=== PATIENT | female | born 1995 | race Caucasian/White ===

== ENCOUNTER 2020-04-15 05:29 | Inpatient (IN) | payer OTHER ==
[~2020-04-15 05:29] MED LIST: CEFAZOLIN 2 GM/D5W RTU 2 GM/50 ML RTUPB IV ONE; LACTATED RINGERS 1000 ML IV PRN; LIDOCAINE 0.5% INJ-PF (5 MG/ML) 50 ML SDV SUBCUT PRN
[2020-04-15] MEDS ORDERED: FENTANYL CITRATE INJ/PF 250 MCG/5 ML AMPULE ONE (06:57)
[2020-04-15] MEDS ORDERED: FENTANYL CITRATE INJ/PF 100 MCG/2 ML AMPUL ONE (06:57)
[2020-04-15] MEDS ORDERED: MIDAZOLAM 2 MG/2 ML INJ ONE (06:57)
[2020-04-15] MEDS ORDERED: MORPHINE SULFATE 10 MG/ML INJ ONE (06:58)
[2020-04-15] MEDS ORDERED: PROPOFOL INJ 200 MG/20 ML VIAL IV ONE (06:58)
[2020-04-15] MEDS ORDERED: SCOPOLAMINE HYDROBROMIDE 1.5 MG PATCH.TD72 ONE (07:01)
[2020-04-15] MEDS ORDERED: SUGAMMADEX SODIUM 200 MG/2 ML SDV IV ONE (09:44)
[2020-04-15] MEDS ORDERED: DEXAMETHASONE SOD PHOSPHATE INJ 4 MG/1 ML VIAL ONE (10:00)
[2020-04-15] MEDS ORDERED: ONDANSETRON HCL INJ/PF 4 MG/2 ML SDV ONE (10:00)
[2020-04-15] MEDS ORDERED: ROCURONIUM BROMIDE INJ 50 MG/5 ML VIAL IV ONE (10:00)
[2020-04-15] MEDS ORDERED: PROMETHAZINE HCL INJ 25 MG/1 ML VIAL IV PRN (10:35)
[2020-04-15] MEDS ORDERED: ONDANSETRON HCL INJ/PF 4 MG/2 ML SDV IV PRN (10:35)
[2020-04-15] MEDS ORDERED: RINGERS SOLUTION,LACTATED 1,000 ML IV PRN (10:35)
[2020-04-15] MEDS ORDERED: TRAMADOL HCL 50 MG TABLET PO PRN (10:42)
[2020-04-15] MEDS ORDERED: HYDROMORPHONE HCL INJ/PF 2 MG/ML AMPULE IV PRN (10:42)
[2020-04-15] MEDS ORDERED: ACETAMINOPHEN 1,000 MG/100 ML RTUPB IV ONE (11:00)
--- NOTE | 2020-04-15 11:18 | Operative Report ---
Operative Report DATE OF SURGERY: 04/15/20 PREOPERATIVE DIAGNOSIS: Nonfunctional kidney; Recurrent UTIs POSTOPERATIVE DIAGNOSIS: PAMELA OPERATION: Right robot assisted laparoscopic simple nephrectomy SURGEON: JUAN DUNN 1ST CREW BOAT OPERATOR: NATTY DEJESUS 2ND Engagement Quality Consultant: PRINCE LOCKE ANESTHESIA: GA TISSUE REMOVED OR ALTERED: right kidney COMPLICATIONS: none ESTIMATED BLOOD LOSS: 50 INTRAOPERATIVE FINDINGS: right renal atrophy with lower pole accessory artery and vein PROCEDURE: The patient was met in preop hold and written consent performed. She was marked on the right side. She was taken to the OR and placed supine where general anesthesia was administered. A abreu catheter was placed. She was repositioned in relax left lateral decubitus with right side up. A gel roll was placed behind her back and axillary roll placed. The table was flexed. Her arm was secured to a support at a 90 degree angle with shoulder neutral. Her left leg was flexed and the right leg supported with pillows partially flexed. She was secured with silk tape and towels. She was prepped and draped in the usual sterile fashion. A timeout was called ensuring correct patient, correct laterality and that all preoperative requirements had been met. Antibiotics were administered. With all in the room in agreement, we proceeded. The abdomen was insufflated with a Veress needle in the right lower quadrant. All ports sites were infiltrated with 0.25% marcaine. A 12mm robotic port was placed at the level of the umbilicus. The camera was passed through and we confirmed no injury on port or veress placement. The other trocars were placed under direct vision being a subcostal and right lower quadrant 8mm, 12mm Airseal assist between and medial to latter and camera, and a 5mm subxiphoid port. There was a minor liver laceration when placing the 8mm subcostal port with no significant bleeding that did not require any hemostasis. The robot was docked over the right shoulder. A atraumatic locking grasper was used to elevate the liver by grasping peritoneum over diaphragm. I began the dissection with using fenestrated bipolar and monopolar scissors by taking down omental adhesions to gallbladder. The colon was reflected medially. There was no need to kocherize the duodenum as fell well clear of vena cava which was apparent. The ureter was visible. This was isolated and elevated and posterior attachments freed. I followed ureter up to renal pelvis which was moderately dilated. After switching to maryland forceps, I carefully dissected towards hilum. There was a lower pole accessory artery that was isolated. There was a renal vein closely adherent to another small artery above this. These were isolated. There was then another artery and vein in close proximity above this. As a thin upper pole extended beyond this, it was unclear if these were upper pole accessories or were the main renal vein and artery as all vessels were relatively small in caliber. Gerota's was from the upper and lower poles in a capsular plane. There was very little fat on the anterior surface of the kidney. Once adequate windows were made, the lower pole artery and other two vascular bundles were ligated and divided with successive 45mm vascular loads of a Ethicon stapler. The ureter was ligated with Hem-o-enio clips and divided. The kidney was freed from its lateral Gerota's in a capsular plane. It was placed in a 10mm specimen bag with string brought through the election assistant Airseal port. The resection bed was thoroughly irrigated. The bed and liver were inspected with excellent hemostasis. The abdomen was desufflated and ports removed. The assist ant port wound was extended by 2cm down through fascia and muscle. The atrophied kidney was easily delivered through this wound and passed off for permanent analysis. The fascia of the specimen incision was closed with 0 Vicryl, and skin closed in layers. The port sites were closed with 4-0 monocryl and dressed with surgical glue. There were no complications. All counts were correct. The patient tolerated the procedure well. She was extubated and transferred to the PACU in stable condition.
[2020-04-15] MEDS ORDERED: DOCUSATE SODIUM 100 MG CAPSULE PO SCH (18:00)
--- NOTE | 2020-04-16 08:27 | PDOC PROGRESS REPORT ---
Subjective Progress Note for:: 04/16/20 Subjective:: Doing well. No PRN, walking, passing flatus, monique PO Reason For Visit: Z87.440 PERSONAL HISTORY OF URINARY (TRACT) INFECT Physical Exam Vital Signs: Temp Pulse Resp BP Pulse Ox 97.9 F 83 16 121/78 99 04/16/20 07:20 04/16/20 07:20 04/16/20 07:20 04/16/20 07:20 04/16/20 07:20 Intake & Output 04/15/20 04/16/20 04/17/20 06:59 06:59 06:59 Intake Total 0 2340 Output Total 1660 Balance 0 680 Weight 60 kg Additional comments: Alert, NAD. Breathing unlabored. Abd soft, wounds dressed with glue, approp ttp, abreu clear straw Assessment & Plan - Plan Summary Plan Summary: RECURRENT UTIs RIGHT NONFUNCTIONAL KIDNEY Draw labs, call with results Abreu out Discharge when results available I will arrange followup, discharge meds on base
--- NOTE | 2020-04-16 08:32 | Discharge Summary ---
Discharge Summary (SDC) - Discharge Final Diagnosis: RECURRENT UTIS NONFUNCTIONAL KIDNEY Date of Surgery: 04/15/20 Condition: Good Treatment or Instructions: MAY SHOWER ON DISCHARGE. NO HEAVY LIFTING OR STRENUOUS EXERCISE FOR 2 WEEKS. UROLOGY CLINIC WILL CALL TO ARRANGE POSTOP APPOINTMENT. NO DISCHARGE MEDS. PRESCRIBED ON BASE. Respiratory Treatments at Home: Incentive Spirometer Discharge Activity: Activity As Tolerated Home Care Assistance: None Needed Report the Following to Your Physician Immediately: Nausea, Vomiting, Fever over 101 Degrees, Redness, Urinary Infection Signs
[2020-04-16 08:55] LABS: HEMATOCRIT 39.9 % (36.0-47.0); HEMOGLOBIN 13.6 g/dL (12.0-15.5); MEAN CORPUSCULAR HEMOGLOBIN 28.3 pg (27.0-33.4); MEAN CORPUSCULAR VOLUME 83 fl (80-97); PLATELET COUNT 319 10^3/uL (150-450); WHITE BLOOD COUNT 9.9 10^3/uL (4.0-10.5)
[2020-04-16 09:22] LABS: ANION GAP 10 (5-19); BLOOD UREA NITROGEN 14 mg/dL (7-20); CALCIUM 9.3 mg/dL (8.4-10.2); CARBON DIOXIDE 25 mmol/L (22-30); CHLORIDE 104 mmol/L (98-107); GLUCOSE 101 mg/dL (75-110); POTASSIUM 3.8 mmol/L (3.6-5.0)
[2020-04-16 09:30] VITALS: BP 137/74
== END 2020-04-16 10:21 | disposition home or self-care (01) | DRG 661 ==
LOC: INOR 05:29 → OROUT 05:29 → EDSTATUS 07:30 → 2N 11:34
PROC: 0TB64ZZ Excision of Right Ureter, Percutaneous Endoscopic Approach (ICD-10-PCS; 2020-04-15)
PROC: 8E0W3CZ Robotic Assisted Procedure of Trunk Region, Percutaneous Approach (ICD-10-PCS; 2020-04-15)
PROC: 0TT04ZZ Resection of Right Kidney, Percutaneous Endoscopic Approach (ICD-10-PCS; principal; 2020-04-15 07:30)
DX: N26.1 Atrophy of kidney (terminal) (principal); N28.9 Disorder of kidney and ureter, unspecified; Z87.440 Personal history of urinary (tract) infections; Z88.1 Allergy status to other antibiotic agents
CPT/HCPCS: 36415; 80048; 84703; 85027; 862; 86850; 86900; 86901; 87635; 88307; 94799; C9803; J0131; J0690; J1100; J2250; J2270; J2405; J2704; J3010; J3490